=== PATIENT | female | born 1955 | race Caucasian/White ===

== ENCOUNTER 2025-06-27 15:36 | Inpatient (IN) | payer MEDICARE, MEDICAID ==
[~2025-06-27] VITALS: Ht 172.7 cm; Wt 96.6 kg
[2025-06-27] MEDS ORDERED: CLOP75TA99 PO (16:18)
[2025-06-27] MEDS ORDERED: TREL1AER PO (16:18)
[2025-06-27] MEDS ORDERED: VENTAER INH (16:18)
[2025-06-27] MEDS ORDERED: NITR0.4S14 SL (16:18)
[2025-06-27] MEDS ORDERED: ATOR40TA75 PO (16:18)
[2025-06-27] MEDS ORDERED: METO50TA7 PO (16:18)
[2025-06-27] MEDS ORDERED: ISOS1TAB36 PO (16:18)
[2025-06-27 16:38] LABS: BASO # 0.1 10^3/uL (0.0-0.2); BASO % 0.4 % (0.0-1.0); EOS # 0.1 10^3/uL (0.0-0.5); EOS % 0.6 % (0.0-3.0); LYMPH # 0.9 10^3/uL (1.5-5.0); LYMPH % 5.6 % (24.0-44.0); MONO # 0.9 10^3/uL (0.0-0.8); MONO % 5.6 % (2.0-8.0); NEUTROPHILS # 13.8 10^3/uL (1.5-8.5); NEUTROPHILS % 87.2 % (36.0-66.0)
[2025-06-27 16:57] LABS: CK-MB VALUE MASS 3.5 NG/ML (<3.6)
[2025-06-27 16:59] LABS: ALT/SGPT 24.0 U/L (7.0-40); AST/SGOT 34.0 U/L (<34); CALCIUM LEVEL 9.0 MG/DL (8.3-10.6); CARBON DIOXIDE LEVEL 21.0 MMOL/L (20-31); CHLORIDE LEVEL 109.0 MMOL/L (98-107); CREATININE FOR GFR 0.91 MG/DL (0.55-1.30); GLOMERULAR FILTRATION RATE 68.3 (>45); POTASSIUM SERUM 4.0 MMOL/L (3.5-5.1); SODIUM LEVEL 144.0 MMOL/L (136-145)
[2025-06-27 17:00] LABS: PLATELET COUNT, AUTOMATED 303 10^3/uL (150-450)
[2025-06-27 17:02] LABS: FREE T4 1.37 NG/DL (0.89-1.76)
[2025-06-27 17:59] LABS: C REACTIVE PROTEIN QUANTITATIV 13.08 MG/DL (<1.0); CPK CREATINE PHOSPHOKINASE 58.0 U/L (34-145); MB/CK RELATIVE INDEX 6.03 (< OR =4)
[2025-06-27] MEDS ORDERED: HYDR-3363 PO (18:07)
[2025-06-27] MEDS ORDERED: METO1TAB7 PO (18:07)
[2025-06-27] MEDS ORDERED: ATOR80TA59 PO (18:07)
[2025-06-27] MEDS ORDERED: GABA-1171 PO ×2 (18:07)
[2025-06-27] MEDS ORDERED: TORS20TA2 PO (18:09)
[2025-06-27] MEDS ORDERED: ASPI81TA26 PO (18:10)
[2025-06-27] MEDS ORDERED: HOME MED LIST COMPLETE! XX SCH (18:15)
[2025-06-27 18:34] LABS: CK-MB VALUE MASS 2.6 NG/ML (<3.6)
[2025-06-27 18:37] LABS: CPK CREATINE PHOSPHOKINASE 39.0 U/L (34-145); MB/CK RELATIVE INDEX 6.66 (< OR =4)
[2025-06-27 19:07] LABS: INR 1.2
[2025-06-27] MEDS: FUROSEMIDE 40 MG/4 ML VIAL IV ONE (20:14)
[2025-06-27] MEDS: MORPHINE 4 MG/ML 1 ML VIAL IV ONE (20:15)
[2025-06-27] MEDS: VANCOMYCIN HCL 1,500 MG, VIAL MATE ADAPTER 1 EACH in NS 500 ML IV ONE (20:31)
[2025-06-27] MEDS ORDERED: ISOVUE-370 76% 100 ML VIAL As Ordered ONE (21:36)
[2025-06-27] MEDS ORDERED: NS (Normal Saline) 0.9% 1,000 ML IV SCH (23:20)
[2025-06-27] MEDS: NS 500 ML IV ONE (23:38)
[2025-06-27] MEDS: PIPERACILLIN/TAZOBACTAM SOD 3.375 GM in DEXTROSE 5% (D5W) ADV/MINI-BAG 50 ML IV ONE (23:38)
[2025-06-28] MEDS ORDERED: ALBUTEROL 90 MCG/ACT 8 GM HFA INHALER INH PRN (00:15)
[2025-06-28] MEDS: NS (Normal Saline) 0.9% 1,000 ML IV SCH (00:47)
[2025-06-28] MEDS ORDERED: GLUCAGON INJ 1 MG VIAL SC PRN (01:40)
[2025-06-28] MEDS ORDERED: GLUCOSE 4 GM CHEW PO PRN (01:40)
[2025-06-28] MEDS ORDERED: DEXTROSE 50% 50 ML SYRINGE IV PRN (01:40)
[2025-06-28 02:49] VITALS: BP 107/61; TEMP 98.7; O2SAT 94
[2025-06-28 05:54] LABS: PLATELET COUNT, AUTOMATED 310 10^3/uL (150-450)
[2025-06-28 06:14] LABS: CALCIUM LEVEL 8.3 MG/DL (8.3-10.6); CARBON DIOXIDE LEVEL 23.0 MMOL/L (20-31); CHLORIDE LEVEL 110.0 MMOL/L (98-107); CREATININE FOR GFR 1.03 MG/DL (0.55-1.30); GLOMERULAR FILTRATION RATE 58.9 (>45); POTASSIUM SERUM 3.8 MMOL/L (3.5-5.1); SODIUM LEVEL 144.0 MMOL/L (136-145)
[2025-06-28] MEDS: PIPERACILLIN/TAZOBACTAM SOD 3.375 GM in DEXTROSE 5% (D5W) ADV/MINI-BAG 50 ML IV SCH (06:35)
[2025-06-28] MEDS ORDERED: MOM 30 ML SUSPENSION UDC PO PRN (06:45)
[2025-06-28] MEDS ORDERED: SENNOSIDES/DOCUSATE SODIUM 8.6 MG/50MG TAB PO PRN (06:45)
[2025-06-28] MEDS: INSULIN LISPRO (NovoLOG) PER UNIT SC SCH ×2 (07:30→21:00)
[2025-06-28 07:34] LABS: VANCOMYCIN RANDOM 16.7 UG/ML
[2025-06-28 07:40] LABS: ESTIMATED AVERAGE GLUCOSE 111.0 MG/DL (60-110)
[2025-06-28 08:02] VITALS: BP 102/61; TEMP 97.9; O2SAT 92
[2025-06-28] MEDS: ENOXAPARIN 40 MG/0.4 ML SYRINGE (J1650 PER 10MG) SC SCH (08:37)
[2025-06-28] MEDS: ATORVASTATIN 20 MG TAB PO SCH (08:37)
[2025-06-28] MEDS: CLOPIDOGREL 75 MG TAB PO SCH (08:38)
[2025-06-28] MEDS: ASPIRIN 81 MG ENTERIC TABLET PO SCH (08:38)
[2025-06-28] MEDS: GABAPENTIN 100 MG CAP PO SCH ×2 (08:38→21:19)
[2025-06-28] MEDS: ISOSORBIDE MONONITRATE 60 MG XR TAB PO SCH (08:38)
[2025-06-28] MEDS: VANCOMYCIN HCL 1,250 MG, VIAL MATE ADAPTER 1 EACH in NS 250 ML IV SCH (08:40)
[2025-06-28] MEDS: METOPROLOL SUCC. 50 MG *XL* TAB PO SCH (08:40)
[2025-06-28] MEDS ORDERED: VANCOMYCIN HCL 1,000 MG, VIAL MATE ADAPTER 1 EACH in NS 250 ML IV SCH (09:00)
[2025-06-28 12:00] VITALS: BP 128/68; TEMP 98.1; O2SAT 97
[2025-06-28] MEDS ORDERED: MAALOX 30 ML SUSP *UDC PO PRN (12:20)
[2025-06-28] MEDS ORDERED: NITROGLYCERIN 0.4 MG SUBL TABLET SL PRN (12:20)
[2025-06-28] MEDS: IPRATROPIUM 0.5 MG/ALBUTEROL 2.5 MG INH SOL UD 3 ML NEB PRN (13:53)
[2025-06-28 13:54] LABS: CK-MB VALUE MASS 1.5 NG/ML (<3.6)
[2025-06-28 13:56] LABS: CPK CREATINE PHOSPHOKINASE 22.0 U/L (34-145); MB/CK RELATIVE INDEX 6.81 (< OR =4)
[2025-06-28 16:00] VITALS: BP 125/69; TEMP 98.3; O2SAT 95
[2025-06-28 19:34] VITALS: BP 99/57; TEMP 98.5; O2SAT 98
[2025-06-28 19:57] LABS: CK-MB VALUE MASS 1.3 NG/ML (<3.6)
[2025-06-28 19:59] LABS: CPK CREATINE PHOSPHOKINASE 22.0 U/L (34-145); MB/CK RELATIVE INDEX 5.9 (< OR =4)
[2025-06-28] MEDS: ACETAMINOPHEN 325 MG TAB PO PRN (21:19)
[2025-06-29 01:47] LABS: CK-MB VALUE MASS 1.4 NG/ML (<3.6)
[2025-06-29 01:50] LABS: CPK CREATINE PHOSPHOKINASE 23.0 U/L (34-145); MB/CK RELATIVE INDEX 6.08 (< OR =4)
[2025-06-29 03:27] VITALS: BP 99/65; TEMP 97.8; O2SAT 93
[2025-06-29 07:42] LABS: VANCOMYCIN LEVEL TROUGH 16.8 UG/ML (10.0-20.0)
[2025-06-29 08:00] VITALS: BP 109/67; TEMP 98; O2SAT 93
[2025-06-29 08:16] LABS: CALCIUM LEVEL 8.4 MG/DL (8.3-10.6); CARBON DIOXIDE LEVEL 24.0 MMOL/L (20-31); CHLORIDE LEVEL 108.0 MMOL/L (98-107); CREATININE FOR GFR 1.12 MG/DL (0.55-1.30); GLOMERULAR FILTRATION RATE 53.2 (>45); POTASSIUM SERUM 3.3 MMOL/L (3.5-5.1); SODIUM LEVEL 143.0 MMOL/L (136-145)
[2025-06-29 09:00] VITALS: BP 109/67
[2025-06-29] MEDS: VANCOMYCIN HCL 1,000 MG, VIAL MATE ADAPTER 1 EACH in NS 250 ML IV SCH (09:21)
[2025-06-29] MEDS: PANTOPRAZOLE 40MG TAB PO SCH (09:21)
[2025-06-29 09:56] LABS: C REACTIVE PROTEIN QUANTITATIV 6.15 MG/DL (<1.0)
[2025-06-29 10:29] LABS: BASO # 0.0 10^3/uL (0.0-0.2); BASO % 0.3 % (0.0-1.0); EOS # 0.3 10^3/uL (0.0-0.5); EOS % 3.1 % (0.0-3.0); LYMPH # 1.0 10^3/uL (1.5-5.0); LYMPH % 11.7 % (24.0-44.0); MONO # 0.6 10^3/uL (0.0-0.8); MONO % 6.9 % (2.0-8.0); NEUTROPHILS # 6.7 10^3/uL (1.5-8.5); NEUTROPHILS % 77.5 % (36.0-66.0); PLATELET COUNT, AUTOMATED 311 10^3/uL (150-450)
[2025-06-29 11:01] LABS: CALCIUM LEVEL 8.2 MG/DL (8.3-10.6); CARBON DIOXIDE LEVEL 25.0 MMOL/L (20-31); CHLORIDE LEVEL 111.0 MMOL/L (98-107); CREATININE FOR GFR 1.13 MG/DL (0.55-1.30); GLOMERULAR FILTRATION RATE 52.7 (>45); POTASSIUM SERUM 3.8 MMOL/L (3.5-5.1); SODIUM LEVEL 143.0 MMOL/L (136-145)
[2025-06-29 12:00] VITALS: BP 92/59; TEMP 98.9; O2SAT 94
[2025-06-29] MEDS: NS 500 ML IV ONE (15:38)
[2025-06-29 16:00] VITALS: BP 100/62; TEMP 98.7; O2SAT 94
[2025-06-29] MEDS ORDERED: PIPE3.3729 IV (17:54)
[2025-06-29] MEDS ORDERED: VANC1INJ39 IV (17:54)
[2025-06-29] MEDS ORDERED: LOVE1INJ SC (17:54)
[2025-06-29] MEDS ORDERED: ENOXAPARIN 100 MG/1 ML SYRINGE (J1650 PER 10MG) SC SCH (18:00)
[2025-06-29 19:26] LABS: HIV 1&2 SCREEN NEGATIVE (NEGATIVE)
[2025-06-29 19:35] LABS: HEPATITIS C VIRUS ABY INDEX < 0.02 INDEX (<0.8)
[2025-06-29 19:42] VITALS: BP 111/58; TEMP 98; O2SAT 95
== END 2025-06-29 20:35 | disposition short-term general hospital (02) | DRG 872 ==
LOC: M ED 15:36 → M ED INP 06-28 00:13 → M PCU 06-28 02:40
PROVIDERS: ADMIT Internal Medicine; ATTEND General Practice
PROC: B246ZZZ Ultrasonography of Right and Left Heart (ICD-10-PCS; principal; 2025-06-28)
DX: A41.9 Sepsis, unspecified organism (principal); K57.32 Diverticulitis of large intestine without perforation or abscess without bleeding; I74.09 Other arterial embolism and thrombosis of abdominal aorta; L03.115 Cellulitis of right lower limb; L03.116 Cellulitis of left lower limb; E11.52 Type 2 diabetes mellitus with diabetic peripheral angiopathy with gangrene; E87.20 Acidosis, unspecified; I70.263 Atherosclerosis of native arteries of extremities with gangrene, bilateral legs; A09 Infectious gastroenteritis and colitis, unspecified; Z59.00 Homelessness unspecified; I38 Endocarditis, valve unspecified; I71.43 Infrarenal abdominal aortic aneurysm, without rupture; I50.9 Heart failure, unspecified; I25.10 Atherosclerotic heart disease of native coronary artery without angina pectoris; D50.9 Iron deficiency anemia, unspecified; I70.211 Atherosclerosis of native arteries of extremities with intermittent claudication, right leg; I77.1 Stricture of artery; I27.20 Pulmonary hypertension, unspecified; I36.1 Nonrheumatic tricuspid (valve) insufficiency; I25.2 Old myocardial infarction; Z79.82 Long term (current) use of aspirin; Z95.5 Presence of coronary angioplasty implant and graft; Z79.02 Long term (current) use of antithrombotics/antiplatelets; Z79.899 Other long term (current) drug therapy